=== PATIENT | female | born 1975 | race Two or more races ===

== ENCOUNTER 2016-11-07 07:22 | Emergency (ER) | payer BC ==
[2016-11-07 07:31] VITALS: BP 110/71
== END 2016-11-07 08:03 | disposition home or self-care (01) ==
LOC: UCEAST 07:22
DX: J98.01 Acute bronchospasm (principal); Z90.49 Acquired absence of other specified parts of digestive tract
CPT/HCPCS: 99212; G0463

== ENCOUNTER 2017-03-16 08:47 | Emergency (ER) | payer BC ==
[2017-03-16 09:04] VITALS: BP 125/71
--- NOTE | 2017-03-16 09:38 | UC ---
Throat Pain/Nasal Domingo HPI - HPI Summary HPI Summary: 41 Y/O female with C/O throat pain, fever, chills, ear fullness, and nausea x 2 days. Denies cough, dyspnea, abdominal pain or chest pain. Able to swallow fluids and food without difficulty. Past medical history and medications reviewed. - History of Current Complaint Chief Complaint: UCGeneralIllness Stated Complaint: THROAT PAIN Time Seen by Provider: 03/16/17 09:10 Hx Obtained From: Patient Hx Last Menstrual Period: 02/20/17 Onset/Duration: Gradual Onset, Lasting Weeks Severity: Moderate Pain Intensity: 5 Pain Scale Used: 0-10 Numeric Associated Signs & Symptoms: Positive: Fever, Vomiting - Epiglottits Risk Factors Epiglottis Risk Factors: Negative - Allergies/Home Medications Allergies/Adverse Reactions: Allergies Allergy/AdvReac Type Severity Reaction Status Date / Time No Known Allergies Allergy Verified 03/16/17 08:53 PMH/Surg Hx/FS Hx/Imm Hx Previously Healthy: Yes - Surgical History Surgical History: Yes Surgery Procedure, Year, and Place: 2004 cholecystomy - Family History Known Family History: Positive: Hypertension Negative: Cardiac Disease, Diabetes - Social History Alcohol Use: None Substance Use Type: None Smoking Status (MU): Never Smoked Tobacco - Immunization History Most Recent Influenza Vaccination: 2014/2015 season Review of Systems Constitutional: Fever, Chills, Fatigue Skin: Negative Eyes: Negative ENT: Other - Feeling of fullness ears Respiratory: Negative Cardiovascular: Negative Gastrointestinal: Vomiting Genitourinary: Negative Motor: Negative Neurovascular: Negative Musculoskeletal: Arthralgia Neurological: Negative Psychological: Negative Is Patient Immunocompromised?: No All Other Systems Reviewed And Are Negative: Yes Physical Exam Triage Information Reviewed: Yes Appearance: Well-Appearing Vital Signs: Initial Vital Signs Temp 98.8 F 03/16/17 08:56 Pulse 102 03/16/17 08:56 Resp 20 03/16/17 08:56 BP 125/71 03/16/17 08:56 Pulse Ox 100 03/16/17 08:56 Vital Signs Reviewed: Yes Eye Exam: Normal Eyes: Positive: Conjunctiva Clear ENT Exam: Other ENT: Positive: Pharyngeal erythema, TM bulging, Tonsillar swelling, Tonsillar exudate Neck: Positive: Enlarged Nodes @ - anterior cervical lymph node swelling Respiratory Exam: Normal Respiratory: Positive: Lungs clear, Normal breath sounds Cardiovascular Exam: Other - HR 102 Cardiovascular: Positive: Tachycardia Abdominal Exam: Normal Abdomen Description: Positive: Nontender Bowel Sounds: Positive: Present Musculoskeletal Exam: Normal Musculoskeletal: Positive: Strength Intact Neurological Exam: Normal Neurological: Positive: Alert Psychological Exam: Normal Skin Exam: Normal Throat Pain/Nasal Course/Dx - Differential Dx/Diagnosis Differential Diagnosis/HQI/PQRI: Influenza, Pharyngitis, Tonsillitis Provider Diagnoses: Strep Throat Discharge - Discharge Plan Condition: Stable Disposition: HOME Patient Education Materials: Strep Throat (ED) Additional Instructions: Your rapid strep test was positive. You have been prescribed an antibiotic, please take as directed. Follow up with urgent care, ED or primary medical provider if symptoms do not improve, if you have shortness of breath or are unable to swallow liquids.
== END 2017-03-16 10:12 | disposition home or self-care (01) ==
LOC: UCEAST 08:47
DX: J02.0 Streptococcal pharyngitis (principal)
CPT/HCPCS: 87651; 99212; G0463

== ENCOUNTER 2019-07-21 16:07 | Emergency (ER) | payer BC, OTHER ==
--- OUTSIDE RECORDS SUMMARY | 2019-07-21 16:13 | XMS REPORT | Continuity of Care Document ---
:1975 External Reference #:[id number] Author Name Sarah Gee O.D. Address [address] [place] [address] Care Team Providers Name Role Phone Isaiah Lorenzo M.D. 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 Onset: 06/22/2019 Myopia Sarah Gee O.D. Onset: 06/22/2019 Tear film insufficiency Sarah Gee O.D. Onset: 06/22/2019 Social History Type Date Description Comments Sex Unknown ETOH Use Denies alcohol use Tobacco Use Start: Unknown Patient has never smoked Recreational Drug Use Denies Drug Use Smoking Status Reviewed: 06/22/19 Patient has never smoked Allergies, Adverse Reactions, Alerts Description No Known Drug Allergies Medications Active Medications SIG Qnty Indications Ordering Provider Date Tramadol HCL Take 1 Tablet PO Unknown 50mg Tablets Q 6 H prn For Severe Pain MDD 3 Tablets Cyclobenzaprine HCL Take 1-2 Tablets Unknown 5mg By Mouth Three Tablets Times A Day as Needed For Muscle Spasm Multivitamin Adult Unknown Tablets Immunizations Description No Information Available Vital Signs Description No Information Available Results Description No Information Available Procedures Description No Information Available Medical Devices Description No Information Available Encounters Description No Information Available Assessments Date Code Description Provider 06/22/2019 H04.123 Dry eye syndrome of bilateral lacrimal glands Sarah Gee O.D. 06/22/2019 H52.13 Myopia, bilateral Sarah eGe O.D. 06/22/2019 H52.223 Regular astigmatism, bilateral Sarah Gee O.D. Plan of Treatment 06/22/2019 - Sarah Gee O.D.H04.123 Dry eye syndrome of bilateral lacrimal glandsComments:Both of your eyes appear to be dry. Use artificial tears as directed. You can use the tears more often if you are reading a book or are on the computer, as we tend to blink less, making our eyes dry out more.[facility] offers a few items in our optical department to help alleviate dry eye symptoms.Follow up:2 year You can expect to have your eyes dilated at your next visit. If Dr. Gee orders any additional testing, it may require extra time. We recommend that you bring sunglasses, as dilation drops often make you light sensitive until they wear off. We always recommend you bring someone to drive you home if you are uncomfortable driving with your eyes dilated. If you have any questions before your next visit, feel free to call our office at .H52.13 Myopia, bilateralComments:You have Myopia, or near sightedness. I have given you a prescription for glasses.H52.223 Regular astigmatism, bilateralComments:Smoking can increase the risk of developing or worsening any eye related disease, as well as affect your overall health. If you are a smoker, we strongly recommend that you quit.If you are not a smoker, we strongly recommend that you do not start. Astigmatism is a common vision condition that happens when a person's cornea is not symmetrical. Dr. Gee has given you a prescription to correct for this. Functional Status Description No Information Available Mental Status Description No Information Available Referrals Description No Information Available
[2019-07-21 16:23] VITALS: BP 127/79
--- NOTE | 2019-07-21 16:39 | UC ---
Eye Complaint HPI - HPI Summary HPI Summary: ONSET TODAY OF LEFT EYE REDNESS, IRRITATION AND GOOPY DRAINAGE. HER DAUGHTER HAS PINK EYE. - History of Current Complaint Chief Complaint: UCEye Stated Complaint: PINK EYE Time Seen by Provider: 07/21/19 16:16 Hx Obtained From: Patient Hx Last Menstrual Period: now Onset/Duration: Gradual Onset, Lasting Hours, Still Present Timing: Constant Severity Initially: Moderate Severity Currently: Moderate Pain Intensity: 3 Pain Scale Used: 0-10 Numeric Location of Injury: Conjunctiva Aggravating Factor(s): Nothing Alleviating Factor(s): Nothing Associated Signs And Symptoms: Positive: Drainage (Purulent). Negative: Photophobia, Vision Impairment Bilateral - Allergies/Home Medications Allergies/Adverse Reactions: Allergies Allergy/AdvReac Type Severity Reaction Status Date / Time No Known Allergies Allergy Verified 07/21/19 16:23 Home Medications: Home Medications Cyclobenzaprine TAB* [Flexeril 10 MG TAB*] 5 g PO Q6H PRN 07/21/19 [History Confirmed 07/21/19] PMH/Surg Hx/FS Hx/Imm Hx Previously Healthy: Yes - Surgical History Surgical History: Yes Surgery Procedure, Year, and Place: 2004 cholecystomy - Family History Known Family History: Positive: Hypertension Negative: Cardiac Disease, Diabetes - Social History Alcohol Use: None Substance Use Type: None Smoking Status (MU): Never Smoked Tobacco - Immunization History Most Recent Influenza Vaccination: 2014/2015 season Review of Systems All Other Systems Reviewed And Are Negative: Yes Constitutional: Positive: Negative Eyes: Positive: Drainage, Eye Redness. Negative: Photophobia ENT: Positive: Negative Respiratory: Positive: Negative Cardiovascular: Positive: Negative Gastrointestinal: Positive: Negative Physical Exam Triage Information Reviewed: Yes Appearance: Well-Appearing, No Pain Distress, Well-Nourished Vital Signs: Initial Vital Signs Temp 98.6 F 07/21/19 16:17 Pulse 88 07/21/19 16:17 Resp 18 07/21/19 16:17 BP 127/79 07/21/19 16:17 Pulse Ox 100 07/21/19 16:17 Vital Signs Reviewed: Yes Eyes: Positive: Conjunctiva Inflamed - LEFT EYE, Discharge - LEFT EYE, Other: - PERRL, EOMI ENT: Positive: Hearing grossly normal Neck: Positive: Supple Respiratory: Positive: No respiratory distress, No accessory muscle use Cardiovascular: Positive: Pulses Normal Abdomen Description: Positive: Soft Musculoskeletal: Positive: No Edema Neurological: Positive: Alert Psychological: Positive: Age Appropriate Behavior Skin: Negative: Rashes Eye Complaint Course/Dx - Differential Dx/Diagnosis Provider Diagnosis: Conjunctivitis, left eye Discharge ED - Sign-Out/Discharge Documenting (check all that apply): Patient Departure All imaging exams completed and their final reports reviewed: No Studies - Discharge Plan Condition: Stable Disposition: HOME Prescriptions: Ciprofloxacin 0.3% OPTH.JANICE* [Cipro 0.3% Opth*] 1 drop LEFT EYE Q4H #1 btl Patient Education Materials: Conjunctivitis (ED) Referrals: Emiile Andrade NP [Primary Care Provider] - If Needed - Billing Disposition and Condition Condition: STABLE Disposition: Home
== END 2019-07-21 16:35 | disposition home or self-care (01) ==
LOC: UCEAST 16:07
DX: H10.9 Unspecified conjunctivitis (principal)
CPT/HCPCS: 99212; G0463